=== PATIENT | male | born 1985 | race Caucasian/White ===

== ENCOUNTER 2016-05-02 22:41 | Emergency (ER) ==
[2016-05-02 22:51] VITALS: BP 137/69
[2016-05-02] MEDS ORDERED: MOTRIN PO ONE (23:40)
--- NOTE | 2016-05-02 23:48 | PROVIDER DOCUMENTATION ---
HPI-Musculoskeletal Pain/Inj - GENERAL Chief Complaint: Extremity Injury Stated Complaint: @ 04/30/16 1430 LT HAND INJURY Time Seen by Provider: 05/02/16 22:53 Source: patient - HX OF PRESENT ILLNESS-MUSKULOSKELTAL Nature of Presenting Problem: This pt presents today c complaints of left hand pain after accidentally striking it on his car while working on it yesterday. He reports pain and swelling to the proximal 2nd and 3rd digits. No loss of motor function or sensation. No other injuries or complaints. Quality of Pain: reports: aching Severity in ED: moderate Onset/Duration: 24 hours ago Timing: still present Modifying Factors: improves with: movement, palpation Any recent injury?: Yes Locality of Occurance: Home Similar Symptoms Previously?: No Recently seen or treated by another doctor?: No Review of Systems - Adult - REVIEW OF SYSTEMS - ADULT Constitutional: reports: no symptoms reported. denies: chills, fever Eyes: reports: no symptoms reported. denies: discharge, dry eyes Ears, Nose, Mouth & Throat: reports: no symptoms reported. denies: ear discharge, ear pain Cardiovascular: reports: no symptoms reported. denies: chest pain, edema Respiratory: reports: no symptoms reported. denies: chronic cough, cough Gastrointestinal: reports: no symptoms reported. denies: abdominal pain, hematemesis Genitourinary: reports: no symptoms reported. denies: dysuria, discharge Musculoskeletal: reports: bone pain, joint pain, joint swelling. denies: frequent leg cramps, muscle aches Integumentary: reports: no symptoms reported. denies: hives, hair loss Neurological: reports: no symptoms reported. denies: ataxia, dizziness/vertigo Psychiatric: reports: no symptoms reported. denies: anxiety, anti-depressant use Endocrine: reports: no symptoms reported Hematologic/Lymphatic: reports: no symptoms reported Allergic/Immunologic: reports: no symptoms reported All Other Systems: Reviewed and Negative Past History - Adult - PAST MEDICAL HISTORY-ADULT Review of Records: reports: Old Records Reviewed, Nursing Assessment Review, Medications Reviewed, Social history reviewed & non-contributory. Major Childhood Illnesses: reports: denies history, Hepatitis A Cardiovascular: reports: denies history Respiratory: reports: denies history Gastrointestinal: reports: denies history Obstetrical/Gynecological: reports: denies history Genitourinary: reports: denies history Musculoskeletal: reports: denies history Neurological: reports: denies history Psychiatric: reports: denies history Endocrine/Immune: reports: denies history Other Conditions: reports: denies history - PRIOR SURGERIES/PROCEDURES Surgical/Procedure History: reports: none - FAMILY HISTORY Family History: reviewed, not pertinent Physical Exam-Injury Related - Physical Exam-Injury Related Initial Vital Signs Reviewed: Yes General Appearance: appears well, alert, no apparent distress Eyes: PERRL/EOMI, pink conjunctivae Head, Ears, Nose, Mouth & Throat: normocephalic/atraumatic, normal ENT inspection, TMs normal, pharynx normal Neck: non-tender, full range of motion, supple, normal inspection Respiratory: chest non-tender, lungs clear, normal breath sounds, no pleuratic chest pain, no respiratory distress, no accessory muscle use Cardiovascular: normal peripheral pulses, regular rate, rhythm, no edema, no gallop, no JVD, no murmur Peripheral Pulses: radial (R): 2+, radial (L): 2+ Abdominal Exam: normal bowel sounds, non tender, soft, no organomegaly, no pulsatile mass Lymphatic: no adenopathy Back Exam: normal inspection, no CVA tenderness, no vertebral tenderness Extremity: normal gait, no pedal edema, no calf tenderness, normal capillary refill, pelvis stable, swelling, tenderness. 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, no motor/sensory deficits Psych/Mental Status: AL, normal mood/affect, normal thought content, normal thought process, oriented x 3 Progress - PLAN OF CARE/RESULTS Progress/Plan/Lab Results: Orders Category Date Time Status Jesse Wrap Application DIRECTED Care 05/02/16 23:40 Active HAND COMPLETE LEFT [RAD] Stat Exams 05/02/16 22:54 Taken Ibuprofen [Motrin] Med 05/02/16 23:40 Discontinued 800 mg PO NOW ONE Vital Signs Temp Pulse Resp BP Pulse Ox 05/02/16 22:48 97.6 F 65 18 137/69 100 No Known Allergies Allergy (Verified 05/02/16 22:51) No Home Medications 05/02/16 - XRAY 1 XRAY: Left XRAY Study: Hand XRAY Interpretation: nad (myself and Dr. Chapa) Departure - Departure Time of Disposition Order: 23:47 DIAGNOSIS: Sprain of hand, left Qualifiers: Encounter type: initial encounter Qualified Code(s): S63.92XA - Sprain of unspecified part of left wrist and hand, initial encounter Disposition: HOME 01 Certified Medical Emergency: Urgent Condition: Good Additional Instructions: Take medication as prescribed. Rest, ice and elevate hand. Follow up with your primary care provider or orthopedist. ED Follow Up Instructions: You have been treated by a care provider in the Emergency Department. These instructions are being provided to you so you can have an understanding of how to care for yourself upon discharge. Upon discharge from the Emergency Department, you are responsible for making arrangements for follow-up care by a physician of your choice. Take all prescribed medications as directed. Return to the Emergency Department immediately for any new or worsening symptoms. You may call the Physician Referral phone number at [phone] to obtain a list of Physicians who are taking new patients. Prescriptions: Meloxicam [Mobic] 7.5 mg PO DAILY PRN PRN #15 tablet PRN Reason: Pain Referrals: None,PCP [Primary Care Provider] - Nilam Cohen MD [STAFF PHYSICIAN] - Attestation - Physician/ Mid-level Attestation Patient care was provided by Mid-level provider (TRAINING FACILITATOR/PA):: Yes Mid-level provider:: Navjot Mar Mid-level documentation review:: The Mid-level provider documentation, treatment plan and medical decision making was reviewed by the physician who agrees with all treatment and medical decision making by the P.
--- NOTE | 2016-05-03 08:06 | Diag Imaging Result Document ---
PROCEDURE NAME: HAND COMPLETE LEFT - 05/02/2016 LEFT HAND, THREE VIEWS: FINDINGS: There is no evidence of fracture or dislocation. No other definite bony abnormalities are present. IMPRESSION: No evidence of acute bony disease.
== END 2016-05-02 23:45 | disposition home or self-care (01) ==
LOC: ED 22:41
DX: S63.92XA Sprain of unspecified part of left wrist and hand, initial encounter (principal); M79.642 Pain in left hand; W22.8XXA Striking against or struck by other objects, initial encounter; M25.442 Effusion, left hand; M89.8X4 Other specified disorders of bone, hand
CPT/HCPCS: 99283